=== PATIENT | male | born 1995 | race Caucasian/White ===

== ENCOUNTER 2018-02-26 00:36 | Emergency (ER) | payer OTHER ==
[~2018-02-26] VITALS: Ht 185.4 cm; Wt 64.4 kg
[2018-02-26] MEDS ORDERED: NORCO 5-325 TA1 EACH PO (01:22)
[2018-02-26 01:38] VITALS: BP 132/80
== END 2018-02-26 01:38 | disposition home or self-care (01) ==
LOC: M.ERS 00:36
DX: S46.812A Strain of other muscles, fascia and tendons at shoulder and upper arm level, left arm, initial encounter (principal); X58.XXXA Exposure to other specified factors, initial encounter; Y93.89 Activity, other specified; Y92.89 Other specified places as the place of occurrence of the external cause; Y99.8 Other external cause status